=== PATIENT | female | born 1975 | race Caucasian/White ===

== ENCOUNTER 2019-11-23 16:01 | Emergency (ER) | payer MEDICAID ==
[~2019-11-23] VITALS: Ht 149.9 cm; Wt 99.8 kg
[2019-11-23 16:14] VITALS: BP_SYST 154
[2019-11-23] MEDS ORDERED: IBUPROFEN 800 MG TABLET PO ONE (16:30)
[2019-11-23] MEDS ORDERED: HYDROcodone/ACETAMIN 5-325 MG TAB (NORCO/ VICODIN) PO ONE (17:15)
[2019-11-23 17:56] VITALS: BP_SYST 152
== END 2019-11-23 17:56 | disposition home or self-care (01) ==
LOC: SED 16:01
DX: S83.91XA Sprain of unspecified site of right knee, initial encounter (principal); I10 Essential (primary) hypertension; X50.0XXA Overexertion from strenuous movement or load, initial encounter; Y93.89 Activity, other specified; Y92.89 Other specified places as the place of occurrence of the external cause; Y99.8 Other external cause status
CPT/HCPCS: 73564; 99283